=== PATIENT | male | born 1955 | race Caucasian/White ===

== ENCOUNTER 2024-10-22 13:56 | Inpatient (IN) | payer MEDICARE, MEDICAID ==
[2024-10-22 16:18] LABS: #Basophils 0.08 10x3/uL (0.0-0.2); %Eosinophils 2.7 % (0.0-10.0); %Lymphocytes 20.6 % (21.0-51.0); %Monocytes 7.2 % (0.0-10.0); %Neutrophils 68.4 % (42.0-75.0); Hematocrit 49.6 % (42.0-52.0); Hemoglobin 16.9 g/dL (14.0-18.0); Mean Corpuscular HGB CONC 34.1 g/dL (32.0-36.0); Mean Corpuscular Hemoglobin 31.5 pg (27.0-31.0); Mean Corpuscular Volume 92.4 fL (78.0-98.0); Mean Platelet Volume 9.3 fL (7.4-10.4); Platelet Count 226 10x3/uL (130-400); RBC Distribution Width 12.5 % (11.5-14.5); Red Blood Cell (RBC) Count 5.37 mill/uL (4.70-6.10)
[2024-10-22 16:34] LABS: ALT (SGPT) 17 U/L (8-55); AST (SGOT) 18 U/L (5-34); Albumin 3.8 g/dL (3.4-4.8); Alkaline Phosphatase 87 U/L (40-110); Anion Gap 15 mmol/L (10-20); BUN (Urea Nitrogen) 15 mg/dL (8.4-25.7); Bilirubin, Total 0.6 mg/dL (0.2-1.2); Calc. Creatinine Clearance 0 mL/min (70-130); Calcium 9.1 mg/dL (7.8-10.44); Carbon Dioxide 21 mmol/L (23-31); Chloride 109 mmol/L (98-107); Estimated GFR 94; Globulin 3.4 g/dL (2.4-3.5); Glucose 87 mg/dL (80-115); Potassium 3.8 mmol/L (3.5-5.1); Protein, Total 7.2 g/dL (5.8-8.1); Sodium 141 mmol/L (136-145)
[2024-10-22 16:38] LABS: Troponin I Less than 0.010 ng/mL (< 0.028)
[2024-10-22 17:07] LABS: INR-International Normal Ratio 1.2; Prothrombin Time 15.5 sec (12.0-14.7)
[2024-10-22] MEDS ORDERED: Dextrose 5% in Water 1,000 ML IV PRN (17:57)
[2024-10-22] MEDS ORDERED: Insulin Regular, Human 100 UNIT/ML 10 ML VIAL SC PRN (17:57)
[2024-10-22] MEDS ORDERED: Acetaminophen 325 MG TAB PO PRN (17:57)
[2024-10-22] MEDS ORDERED: hydrALAZINE 20 MG/ML VIAL SLOW IVP PRN (17:57)
[2024-10-22] MEDS ORDERED: Dextrose 50% Abboject 50 ML SYRINGE SLOW IVP PRN (17:57)
[2024-10-22] MEDS ORDERED: Glucagon 1 MG/ML KIT IM PRN (17:57)
[2024-10-22 18:40] VITALS: BMI 29.9
[2024-10-22] MEDS ORDERED: Apixaban 5 MG TAB ONE (21:50)
[2024-10-22] MEDS ORDERED: Atorvastatin Calcium 40 MG TAB ONE (21:50)
[2024-10-22] MEDS ORDERED: Famotidine 20 MG TAB ONE (21:50)
[2024-10-22] MEDS: Famotidine 20 MG TAB PO SCH (21:59)
[2024-10-22] MEDS: Apixaban 5 MG TAB PO SCH (21:59)
[2024-10-22] MEDS: Atorvastatin Calcium 40 MG TAB PO SCH (21:59)
[2024-10-22] MEDS: Flecainide 50 MG TAB PO SCH (21:59)
[2024-10-23 05:28] LABS: Hemoglobin A1c 5.4 % (4.0-6.0)
[2024-10-23 06:00] LABS: Cardiac Risk 2.4 (Less than 4.5)
[2024-10-23] MEDS: Mirabegron ER 25 MG ER.TAB PO SCH (08:42)
[2024-10-24] MEDS: Tamsulosin HCl 0.4 MG CAP PO SCH (09:30)
[2024-10-24] MEDS: Aspirin Chewable 81 MG TAB PO SCH (09:31)
[2024-10-24 11:25] VITALS: TEMP 98.6
[2024-10-24 15:58] VITALS: BP 118/66
== END 2024-10-24 14:37 | disposition home or self-care (01) | DRG 57 ==
LOC: ERS 13:56 → ERHOLD 17:59 → OBS 23:36 → OBSVTOIN 10-24 09:30
PROVIDERS: ADMIT Family Medicine; ATTEND Internal Medicine
DX: I69.351 Hemiplegia and hemiparesis following cerebral infarction affecting right dominant side (principal); R41.3 Other amnesia; E11.9 Type 2 diabetes mellitus without complications; E78.5 Hyperlipidemia, unspecified; I48.91 Unspecified atrial fibrillation; F32.A Depression, unspecified; I10 Essential (primary) hypertension; I69.322 Dysarthria following cerebral infarction; Z87.891 Personal history of nicotine dependence; Z79.01 Long term (current) use of anticoagulants; Z96.651 Presence of right artificial knee joint; Z79.899 Other long term (current) drug therapy; Z79.84 Long term (current) use of oral hypoglycemic drugs; Z79.82 Long term (current) use of aspirin
CPT/HCPCS: 36415; 36416; 70450; 70551; 71045; 80053; 80061; 83036; 84443; 84484; 85025; 85610; 85730; 93005; 93306; 93880; 94760; G0378